=== PATIENT | female | born 1945 | race Caucasian/White ===

== ENCOUNTER 2016-11-09 16:05 | Emergency (ER) | payer MEDICARE, OTHER ==
[~2016-11-09] VITALS: Ht 165.1 cm; Wt 95.5 kg
[~2016-11-09 16:05] MED LIST: AMLO5TAB2 PO; ASPI81TA3 PO; ATOR20TA PO; CHOL200025 PO; LEVO50TA6 PO; NITR0.4T SL
[2016-11-09 17:06] VITALS: BP 158/93; PULSE 90; RESP 16; O2SAT 97
--- NOTE | 2016-11-09 17:52 | DRSVH ---
PROCEDURE: X-RAY CHEST ONE VIEW, PORTABLE ([id number]) INDICATIONS: cp TECHNIQUE: One view of the chest was acquired. COMPARISON: [facility], CR, XR CHEST 1VW (PORTABLE), 05/25/2016, 15:48. FINDINGS: Surgical changes and devices: The sternotomy. Surgical clips in the right breast. There is left maste ctomy. Lungs and pleura: Left hemidiaphragm elevation and left basilar atelectasis. No pleural effusions or pneumothorax. Mediastinum: Mediastinal contours appear normal. Heart size is normal. Bones and chest wall: No suspicious bony lesions. Overlying soft tissues appear unremarkable. IMPRESSION: No acute cardiopulmonary disease. Dictated by: Luis Antonio Patterson M.D. on 11/09/2016 at 17:49 Approved by: Luis Antonio Patterson M.D. on 11/09/2016 at 17:50
[2016-11-09 17:59] LABS: BASOPHILS % (AUTO) 0.4 % (0-3); EOSINOPHILS % (AUTO) 2.2 % (0-5); MONOCYTES % (AUTO) 8.8 % (4-12); Mean Corpuscular Volume 97.9 fL (81-100); NEUTROPHILS % (AUTO) 65.1 % (40-74); Platelet Count 280 bil/L (150-400)
--- NOTE | 2016-11-09 18:00 | ED.REPORT ---
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 She describes her pain as a sharp and stabbing pain which lasted about 30 minutes and relieved after 1 nitro dose. She c/o associated nausea. Pt denies SOB, vomiting, diaphoresis, fever, chills, cough. The patient was seen here May 2016 for an NSTEMI at which point a cardiac catheterization was performed and interpreted as normal. Her symptoms today are similar to that time. She had a PET scan in late October of this year which showed no sign of recurrent cancer. Nursing Notes Stated Complaint: HEART ISSUES Chief Complaint: Chest Pain Nursing Notes Reviewed: Yes Allergies: Coded Allergies: iodine (Verified Allergy, Severe, Hives (Injectable), 08/23/16) codeine (Verified Adverse Reaction, Severe, "upsets stomach", 08/23/16) Scheduled Amlodipine (Amlodipine) 5 Mg Tablet 5 MG PO DAILY Aspirin Chew (Aspirin Chew) 81 Mg Chew 81 MG PO DAILY Atorvastatin (Lipitor) 20 Mg Tablet 20 MG PO DAILY Levothyroxine (Levothyroxine) 50 Mcg Tablet 50 MCG PO DAILY Scheduled PRN Nitroglycerin SL (Nitrostat) 0.4 Mg Tab.subl 0.4 MG SL Q5MIN PRN PRN For Chest Pain Miscellaneous Medications Cholecalciferol (Vitamin D3) (Vitamin D3) 2,000 Unit Tablet 2,000 UNIT PO General Time Seen by MD: 17:57 Chief Complaint Chest pain Hx Obtained From: Patient Arrived By: Walk-in Sudden in Onset?: Yes Onset Occurred: 5 - 8 hours ago Symptom Duration: Intermittent Location: : Substernal Quality: Sharp, Stabbing Severity: Current: No pain currently Severity: Maximum: Moderate Recent Healthcare: Previous diagnosis Similar Sx Previous: Yes Risk Factors PERC Rule Age 50 or over Well's Criteria for PE Well's PE Score: 0-2 pts (low risk 3.6%) Past Medical History Past Medical History 1. Excess weight. 2. Hyperlipidemia. 3. Hypothyroidism. 4. History of right breast invasive lobular carcinoma, stage T1 N0, treated in 2009 with mastectomy, and radiation and chemotherapy. 5. History of vaginal prolapse. 6. Recent diagnosis of a large chest mass of unclear origin. Cytology and genetics are pending on this biopsy. Past Surgical History 1. Right foot bunion surgery in 2012. 2. Hysterectomy with unilateral oophorectomy in 2009. 3. Right partial mastectomy with sentinel lymph node biopsy along with radiation and chemotherapy for breast cancer in 2009. 4. Colonoscopy in 2004 and 2013, both normal. Family History Mother had breast cancer. of pancreatic cancer. She also had hyperlipidemia. Father had coronary artery disease and an abdominal aortic aneurysm. He also had squamous cell carcinoma. He is . She has three maternal aunts with breast cancer. Smoking History Never Smoker Social History Alcohol Use: "Social" Other Social History: Ambulatory Status Independent Review of Systems Constitutional: Denies: Chills, Fever Respiratory: Denies: Hemoptysis, Non-productive cough, Shortness of breath Cardiovascular: Reports: Chest pain, Denies: Edema GI: Reports: Nausea, Denies: Vomiting Skin: Denies Diaphoresis Complete sys rev & neg: except as marked. Physical Exam Initial Vital Signs Vital Signs (First) Date Time Temp Pulse Resp B/P Pulse Ox O2 Delivery O2 Flow Rate FiO2 11/09/16 17:06 36.4 90 16 158/93 97 Room Air Initial VS: Reviewed, Vital signs normal Head / Eyes: Atraumatic, Normocephalic, PERRL ENT: Mucous membranes moist, Conjunctiva normal, No scleral icterus Neck: Supple, Full range of motion Extremities: Vascular intact, Neuro intact, No swelling, No tenderness Skin: Warm, Dry, No cyanosis Neurologic: Alert, Oriented, Nonfocal Psychiatric: Mood/affect normal, Behavior normal, Normal thought content General/Constitutional: Awake, Alert, No acute distress, Well appearing, Cooperative, Not toxic appearing Respiratory / Chest: Atraumatic, Breath sounds NL, Breath sounds = bilat, No respiratory distress, No rales, No rhonchi, No wheezing, No retractions, No stridor, No chest tenderness, No chest wall deformity, No crepitus Cardiovascular: Heart rate NL, Regular rhythm, Heart sounds NL, No gallop, No murmurs, No rubs, Cap refill not delayed, Peripheral circulation NL Trace non-pitting edema bilat lower extremities Abdomen: Atraumatic, Soft, Non-tender, No guarding, No rebound, No palpable mass Interpretation & Diagnostics Lab Results Interpretation Result Diagram: 11/09/16 1734 11/09/16 1734 Test 11/09/16 17:34 11/09/16 17:35 11/09/16 20:10 White Blood Count 5.1th/mm3 (3.8-10.1) Red Blood Count 4.39mil/mm3 (3.90-5.20) Hemoglobin 14.5g/dL (12.0-15.6) Hematocrit 43.0% (35.0-46.0) Mean Corpuscular Volume 97.9fL (81-100) Mean Corpuscular Hemoglobin 33.0pg (27.0-35.0) Mean Corpuscular Hemoglobin Concent 33.7% (32.0-37.0) Red Cell Distribution Width 12.7% (12.3-15.4) Platelet Count 280bil/L (150-400) Neutrophils (%) (Auto) 65.1% (40-74) Lymphocytes (%) (Auto) 23.3% (14-46) Monocytes (%) (Auto) 8.8% (4-12) Eosinophils (%) (Auto) 2.2% (0-5) Basophils (%) (Auto) 0.4% (0-3) Sodium Level 138mEq/L (134-144) Potassium Level 3.7mEq/L (3.5-5.2) Chloride Level 98mEq/L (97-108) Carbon Dioxide Level 25mmol/L (18-29) Blood Urea Nitrogen 13mg/dL (8-27) Creatinine 0.70mg/dL (0.57-1.00) Estimat Glomerular Filtration Rate 119mL/min (>59) Glucose Level 153mg/dL (60-99) Calcium Level 9.2mg/dL (8.5-10.1) Magnesium Level 1.8mg/dL (1.6-2.6) Total Bilirubin 0.7mg/dL (0.0-1.2) Aspartate Amino Transf (AST/SGOT) 19U/L (0-50) Alanine Aminotransferase (ALT/SGPT) 14U/L (0-32) Alkaline Phosphatase 88U/L (25-165) Total Protein 7.7g/dL (6.4-8.4) Albumin 4.4g/dL (3.4-5.0) Hold Urine Received (Received) Troponin T 0.011ug/L (0.0-0.011) ECG Interpretation ECG Interpretation: Sinus rhythm rate 74 LAFB Time: 18:06 Interpreted by: ED physician Normal ECG Interpretation: No acute ischemic changes, No change from prior ECGs X-Ray Chest Interpretation Chest Xray Interpretation: IMPRESSION: No acute cardiopulmonary disease. Dictated by: Luis Antonio Patterson M.D. on 11/09/2016 at 17:49 Approved by: Luis Antonio Patterson M.D. on 11/09/2016 at 17:50 View: Portable, 1 view Interpretation / Wet Read by: Interpret - Radiologist Re-Eval/Medical Decision Med Decision/Clinical Course Given the normal heart catheterization within the past year as well as 2 troponin values within normal limits today and fleeting resolved chest pain I believe that outpatient workup is appropriate at this point. Time of Eval: 21:05 Re-Evaluation/Progress Note: Pt rechecked. Informed pt of plan for treatment. Pt understands and agrees with plan for treatment. F/U instructions and RTER warnings given. All questions addressed. Counseled Regarding: Diagnosis, Lab results, Need for follow-up, When/why to return to ED Discharge & Departure Primary Impression: Chest pain Chest pain type: unspecified Qualified Code: R07.9 - Chest pain, unspecified Disposition: Home Discharge Condition All VS Reviewed: Yes Condition: Stable Patient Instructions: Chest Pain (ED) Additional Instructions: No dangerous cause for your chest pain was identified. Your labs today were normal including the original and repeat troponin, (which is the marker for heart damage). Your EKG and chest x-ray were normal. Please follow-up with your primary care doctor later this week or early next week to discuss today's visit and possibility for further outpatient evaluation. Return to the emergency department for persistent or increased chest pain, shortness of breath, profuse sweating, vomiting, high fever, or other concerning symptoms. Referrals: Lupillo Orourke MD (PCP) Scribe Attestation Portions of this note were transcribed by Dejuan Martin. I, Dr. Hutchins personally performed the history, physical exam and medical decision-making; I reviewed and confirmed the accuracy of the information in the transcribed note. Signed by Deion Stern, 11/09/16 - 1899 copies to: Lupillo Orourke MD, Kirk H MD Nov 09, 2016 18:00 DEJUAN MARTIN Nov 09, 2016 18:05
[2016-11-09 18:27] LABS: TROPONIN T < 0.010 ug/L (0.0-0.011)
[2016-11-09 18:32] LABS: Magnesium 1.8 mg/dL (1.6-2.6)
[2016-11-09 20:01] VITALS: BP 134/81; PULSE 74; RESP 14; O2SAT 95
[2016-11-09 21:18] VITALS: BP 122/73; PULSE 78; O2SAT 97
== END 2016-11-09 21:20 | disposition home or self-care (01) ==
LOC: SED 16:05
DX: R07.9 Chest pain, unspecified (principal); R11.0 Nausea; E78.5 Hyperlipidemia, unspecified; E03.9 Hypothyroidism, unspecified; I25.2 Old myocardial infarction; Z85.3 Personal history of malignant neoplasm of breast; Z79.82 Long term (current) use of aspirin; Z91.041 Radiographic dye allergy status; Z88.5 Allergy status to narcotic agent

== ENCOUNTER 2017-06-01 13:28 | Emergency (ER) | payer MEDICARE, OTHER ==
[~2017-06-01] VITALS: Ht 167.6 cm; Wt 210.0 kg
[~2017-06-01 13:28] MED LIST changes: -AMLO5TAB2 PO; +ASPI-973 PO; -ASPI81TA3 PO; -ATOR20TA PO; +ATOR20TA65 PO; +CLOP75TA28 PO; +LISI10TA PO; -NITR0.4T SL; +NITR0.4T6 SL
[2017-06-01 13:31] VITALS: BP 118/64; PULSE 89; RESP 16; O2SAT 95
--- NOTE | 2017-06-01 15:11 | ED.REPORT ---
HPI-Chest Pain 40 and Over Date of Service Jun 01, 2017 ED Provider: Rogelio Hutchins MD The pt is a 72 y/o female w/ a hx of hyperlipidemia, hypothyroidism, and a RI presenting to the ED complaining of chest pain. The pain is substernal, and lasted for roughly 30 minutes yesterday immediately after exercising at her first cardiac rehabilitation appointment. She also experienced pain across the shoulders that lasted for an hour which began during the night and resolved spontaneously after about an hour. Denies nausea. She also reports chronic SOB and diaphoresis which she has been experiencing before the episodes of chest and shoulder pain. Nursing Notes Stated Complaint: SYMPTOMS OF CARDIAC Chief Complaint: Chest Pain Nursing Notes Reviewed: Yes Allergies: Coded Allergies: iodine (Verified Allergy, Severe, Hives (Injectable), 06/01/17) codeine (Verified Adverse Reaction, Severe, "upsets stomach", 06/01/17) Scheduled Aspirin (Aspirin) 81 Mg Tablet 81 MG PO DAILY Atorvastatin Calcium (Atorvastatin Calcium) 20 Mg Tablet 40 MG PO HS Cholecalciferol (Vitamin D3) (Vitamin D3) 2,000 Unit Tablet 2,000 UNIT PO DAILY Clopidogrel (Clopidogrel) 75 Mg Tablet 75 MG PO DAILY Levothyroxine (Levothyroxine) 50 Mcg Tablet 50 MCG PO DAILY Lisinopril (Lisinopril) 10 Mg Tablet 10 MG PO DAILY Nitroglycerin SL (Nitroglycerin SL) 0.4 Mg Tab.subl 0.4 MG SL Q5MIN General Time Seen by MD: 15:10 Chief Complaint Chest pain Hx Obtained From: Patient Arrived By: Walk-in Sudden in Onset?: Yes Onset Occurred: Yesterday Symptom Duration: Intermittent Recent Healthcare: No recent hospitalization, Recent doctor visit Similar Sx Previous: Yes Past Medical History Past Medical History 1. Excess weight. 2. Hyperlipidemia. 3. Hypothyroidism. 4. History of right breast invasive lobular carcinoma, stage T1 N0, treated in 2009 with mastectomy, and radiation and chemotherapy. 5. History of vaginal prolapse. 6. Recent diagnosis of a large chest mass of unclear origin. Cytology and genetics are pending on this biopsy. 7. RI Past Surgical History 1. Right foot bunion surgery in 2012. 2. Hysterectomy with unilateral oophorectomy in 2009. 3. Right partial mastectomy with sentinel lymph node biopsy along with radiation and chemotherapy for breast cancer in 2009. 4. Colonoscopy in 2004 and 2013, both normal. 5. Cardiac stent placed 05/09/17 Family History Mother had breast cancer. of pancreatic cancer. She also had hyperlipidemia. Father had coronary artery disease and an abdominal aortic aneurysm. He also had squamous cell carcinoma. He is . She has three maternal aunts with breast cancer. Smoking History Never Smoker Social History Alcohol Use: "Social" Other Social History: Good social support, Ambulatory Status Independent Review of Systems Pain across the shoulders; Chronic SOB and diaphoresis which the pt has experienced before her episodes of chest and shoulder pain; Cardiovascular: Reports: Chest pain GI: Denies: Nausea Complete sys rev & neg: except as marked. Physical Exam Initial Vital Signs Vital Signs (First) Date Time Temp Pulse Resp B/P Pulse Ox O2 Delivery O2 Flow Rate FiO2 06/01/17 13:31 36.5 89 16 118/64 95 Room Air Initial VS: Reviewed Head / Eyes: Atraumatic, Normocephalic, PERRL ENT: Mucous membranes moist, Conjunctiva normal, No scleral icterus Neck: Supple, Non-tender, Full range of motion Skin: Warm, Dry, No cyanosis Neurologic: Alert, Oriented, Nonfocal Psychiatric: Mood/affect normal, Behavior normal, Normal thought content General/Constitutional: Awake, Alert Respiratory / Chest: Atraumatic, Breath sounds NL, Breath sounds = bilat, No chest tenderness Cardiovascular: Heart rate NL, Regular rhythm, Heart sounds NL Abdomen: Atraumatic, Soft, Non-tender Back: Atraumatic Unable to reproduce upper back pain upon palpation; Interpretation & Diagnostics Lab Results Interpretation Result Diagram: 06/01/17 1500 06/01/17 1500 Test 06/01/17 15:00 White Blood Count 5.7th/mm3 (3.8-10.1) Red Blood Count 3.85mil/mm3 (3.90-5.20) Hemoglobin 13.1g/dL (12.0-15.6) Hematocrit 38.6% (35.0-46.0) Mean Corpuscular Volume 100.3fL (81-100) Mean Corpuscular Hemoglobin 34.0pg (27.0-35.0) Mean Corpuscular Hemoglobin Concent 33.9% (32.0-37.0) Red Cell Distribution Width 12.6% (12.3-15.4) Platelet Count 258bil/L (150-400) Neutrophils (%) (Auto) 62.8% (40-74) Lymphocytes (%) (Auto) 24.6% (14-46) Monocytes (%) (Auto) 9.9% (4-12) Eosinophils (%) (Auto) 2.3% (0-5) Basophils (%) (Auto) 0.2% (0-3) Sodium Level 138mEq/L (134-144) Potassium Level 3.7mEq/L (3.5-5.2) Chloride Level 102mEq/L (97-108) Carbon Dioxide Level 23mmol/L (18-29) Blood Urea Nitrogen 17mg/dL (8-27) Creatinine 0.57mg/dL (0.57-1.00) Estimat Glomerular Filtration Rate 150mL/min (>59) Glucose Level 122mg/dL (60-99) Calcium Level 9.0mg/dL (8.5-10.1) Magnesium Level 1.6mg/dL (1.6-2.6) Total Bilirubin 0.4mg/dL (0.0-1.2) Aspartate Amino Transf (AST/SGOT) 13U/L (0-50) Alanine Aminotransferase (ALT/SGPT) 11U/L (0-32) Alkaline Phosphatase 73U/L (25-165) Troponin T < 0.010ug/L (0.0-0.011) Total Protein 6.9g/dL (6.4-8.4) Albumin 3.8g/dL (3.4-5.0) ECG Interpretation ECG Interpretation: Rate 76 NSR Left anterior fascicular block Time: 14:38 X-Ray Chest Interpretation Chest Xray Interpretation: IMPRESSION: 1. No acute cardiopulmonary process is evident. 2. Increased attenuation overlying the right lateral lung base is less apparent on the current exam. Continued followup is recommended in 3-4 weeks to ensure complete resolution. Dictated by: Raoul Stewart M.D. on 06/01/2017 at 14:03 Approved by: Raoul Stewart M.D. on 06/01/2017 at 14:24 View: Portable, 1 view Interpretation / Wet Read by: Interpret - Radiologist Re-Eval/Medical Decision Source of Hx: Old records Counseled Regarding: Diagnosis, Lab results, Need for follow-up, When/why to return to ED Discharge & Departure Primary Impression: Chest pain Disposition: Home Discharge Condition All VS Reviewed: Yes Condition: Stable Patient Instructions: Chest Pain (ED) Additional Instructions: No evidence of heart attack was discovered today. I am concerned about the chest pain that you had while exercising at cardiac rehabilitation. Prior to resuming your rehabilitation, I recommend follow-up with cardiology. Referrals: Lupillo Orourke MD (PCP) Scribe Attestation Portions of this note were transcribed by Maycol Shipman. I, Dr. Hutchins personally performed the history, physical exam and medical decision-making; I reviewed and confirmed the accuracy of the information in the transcribed note. copies to: Lupillo Orourke MD, Kirk H MD Jun 01, 2017 15:10 Maycol Shipman Jun 01, 2017 15:43
[2017-06-01 15:20] LABS: BASOPHILS % (AUTO) 0.2 % (0-3); EOSINOPHILS % (AUTO) 2.3 % (0-5); MONOCYTES % (AUTO) 9.9 % (4-12); Mean Corpuscular Volume 100.3 fL (81-100); NEUTROPHILS % (AUTO) 62.8 % (40-74); Platelet Count 258 bil/L (150-400)
--- NOTE | 2017-06-01 15:26 | DRSVH ---
PROCEDURE: X-RAY CHEST ONE VIEW, PORTABLE ([id number]) INDICATIONS: CHEST PAIN TECHNIQUE: One view of the chest was acquired. COMPARISON: [facility], CR, XR CHEST 1VW (PORTABLE), 05/09/2017, 8:45. FINDINGS: Surgical changes and devices: Postoperative changes of right chest and sternum are present. Lungs and pleura: Increased attenuation is identified within the right lung, which may be positional. There is volume loss within the right lung, as well. Increased attenuation overlying the mid to lo wer aspect of the right lateral lung there is an area of increased attenuation overlying the inferior border of the scapula. This is less prominent on the current study. No new consolidation, effusion , or pneumothorax is evident. Mediastinum: Mediastinal contours appear normal. Heart size is normal. Bones and chest wall: No suspicious bony lesions. Overlying soft tissues appear unremarkable. IMPRESSION: 1. No acute cardiopulmonary process is evident. 2. Increased attenuation overlying the right lateral lung base is less apparent on the current exam. Continued followup is recommended in 3-4 weeks to ensure complete resolution. Dictated by: Raoul Stewart M.D. on 06/01/2017 at 14:03 Approved by: Raoul Stewart M.D. on 06/01/2017 at 14:24
[2017-06-01 15:48] LABS: TROPONIN T < 0.010 ug/L (0.0-0.011)
[2017-06-01 15:51] LABS: Magnesium 1.6 mg/dL (1.6-2.6)
[2017-06-01 16:33] VITALS: BP 118/64; PULSE 89; RESP 16; O2SAT 95
== END 2017-06-01 16:00 | disposition home or self-care (01) ==
LOC: SED 13:28
DX: R07.2 Precordial pain (principal); R06.02 Shortness of breath; E78.5 Hyperlipidemia, unspecified; E03.9 Hypothyroidism, unspecified; I25.2 Old myocardial infarction; I10 Essential (primary) hypertension; Z90.11 Acquired absence of right breast and nipple; Z85.3 Personal history of malignant neoplasm of breast; Z85.29 Personal history of malignant neoplasm of other respiratory and intrathoracic organs; Z95.5 Presence of coronary angioplasty implant and graft; Z79.82 Long term (current) use of aspirin; Z88.5 Allergy status to narcotic agent; Z88.8 Allergy status to other drugs, medicaments and biological substances